=== PATIENT | female | born 1950 | race Caucasian/White ===

== ENCOUNTER 2019-08-03 16:42 | Emergency (ER) | payer MEDICARE, OTHER ==
[~2019-08-03] VITALS: Ht 162.6 cm; Wt 47.6 kg
--- OUTSIDE RECORDS SUMMARY | 2019-08-03 16:44 | XMS REPORT | Summary of Care ---
Author Author [facility] Organization [facility] Address Unknown Phone Unavailable Care Team Providers [employer] Sales Representative Name Role Phone Alena Contreras MD PCP Bao Forman MD 26 Reason for Visit * Reason Comments Skin Check Encounter Details Care Team Description Date Type Department Julienne Ortez MD [address] [facility] 6th Floor, [address] [place] [address] Skin Check 05/04/2019 Office Visit [facility] Dermatology [address] [facility] [place] [address] Allergies Comments Active Allergy Reactions Severity Noted Date I.V. Dye Hives High 12/14/2009 Affected her blood some kind of way Sulfa Antibiotics Other (See High 12/14/2009 Comments) documented as of this encounter (statuses as of 05/04/2019) Medications End Date Status Medication Sig Dispensed Refills Start Date Active PREMARIN vaginal cream daily. 0 1 Active PROVENTIL HFA 108 (90 INHALE 1-2 3 Inhaler 0 BASE) MCG/ACT inhaler PUFFS BY 4 MOUTH EVERY 6 HOURS NEEDED FOR WHEEZING. Active gabapentin (NEURONTIN) Take 1 Cap by 90 Cap 5 300 MG mouth 3 times 5 capsuleIndications: Right daily. Take lumbar radiculopathy as directed by your MD Active Mesalamine (LIALDA) 1.2 g Take 1 Tab by 120 Each 3 TBEC mouth daily. 9 Active olmesartan (BENICAR) 40 TAKE 1 TABLET 90 Tab 3 06/10/201 MG tabletIndications: EVERY DAY 9 Essential hypertension Active amlodipine (NORVASC) 10 TAKE 1 TABLET 90 Tab 3 02/15/201 MG tabletIndications: EVERY DAY 9 Essential hypertension Active labetalol (NORMODYNE) 100 TAKE 1 TABLET 180 Tab 3 02/15/201 MG tablet BY MOUTH TWO 9 TIMES DAILY Active omeprazole (PRILOSEC) 40 Take 1 Cap by 90 Cap 3 02/23/201 MG capsule mouth daily. 9 Active Mesalamine [address] 1,000 90 Each 1 03/15/ MG RECTALLY 9 NIGHTLY. 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 Walton in 03/22/2002 BCC (basal cell carcinoma), face 09/19/2014 Ocular migraine 05/11/2013 SCC (squamous cell carcinoma), arm 05/25/2012 NS (nuclear sclerosis) 11/28/2011 Macular degeneration 11/28/2011 GERD (gastroesophageal reflux disease) 09/30/2011 Need for Td vaccine 09/30/2011 SCC (squamous cell carcinoma), hand 07/30/2011 Actinic keratosis 01/21/2011 Angioma 01/21/2011 Benign neoplasm of skin of trunk, except scrotum 01/21/2011 Neoplasm of uncertain behavior of skin 01/21/2011 Lentigo 01/21/2011 Other seborrheic keratosis 01/21/2011 Leucocytosis 10/26/2010 Insomnia 10/26/2010 Febrile illness 10/15/2010 Crohn's 10/15/2010 HTN (hypertension) 01/19/2010 MVP (mitral valve prolapse) 01/18/2010 Overview: Takes Abx prior to dental procedures Asthma 01/18/2010 Other malignant neoplasm of skin of upper limb, including shoulder 12/25/2009 AK (actinic keratosis) 12/14/2009 Adenocarcinoma of right lung Overview: pT1bN0 AAA (abdominal aortic aneurysm) documented as of this encounter (statuses as of 05/04/2019) Resolved Problems Problem Noted Date Resolved Date Lung nodules 10/04/2015 06/03/2016 Last Assessment & Plan: - Patient has a 2.6 cm spiculated nodule on RB1 on CT on 09/14/2015 incidentally found - No lymphadenopathy notable on CT at [facility] - FEV1 1.53 (65%) - Surgery is being considered, so will do survey of mediastinal and hilar lymph nodes as well. - For CP-EBUS and RP-EBUS TBNA on 10/10/2015 at 8AM (Confirmation # [id number]) - Risks, benefits and alternatives explained in detail to patient - Labs at [facility] have been reviewed, deemed acceptable for procedure. Terminal insomnia 09/30/2011 06/03/2016 Wart 01/21/2011 06/03/2016 Oral aphthous ulcer 01/14/2011 06/03/2016 Preventative health care 01/14/2011 06/03/2016 Warts 02/22/2010 06/03/2016 Personal history of other malignant neoplasm of skin 12/14/2009 06/03/2016 documented as of this encounter (statuses as of 05/04/2019) Immunizations Name Administration Dates Next Due Influenza Hd 05/14/2018, 06/23/2017, 06/03/2016 Pneumococcal 13-valent 06/03/2016 Conjugate Vaccine Pneumococcal 06/30/2017 Polysaccharide Td 09/30/2011 documented as of this encounter Social History Date Tobacco Use Types Packs/Day Years Used Quit: 10/02/1979 Former Smoker Cigarettes 1 10 Smokeless Tobacco: Never Used Comments: 40 yrs ago Drinks/Week oz/Week Comments Alcohol Use No Sex Assigned at Date Recorded Not on file Industry Job Start Date Occupation Not on file Not on file Not on file Travel End Travel History Travel Start No recent travel history available. documented as of this encounter Last Filed Vital Signs Not on filedocumented in this encounter Progress Notes * Julienne Ortez MD - 05/04/2019 10:00 AM CDT Chief Complaint Patient presents with Skin Check History: 68 y.o. female presents for a skin check and is worried about skin cancer. She p oints to one or more lesions on her body that she is concerned about. H/o NMSC and lung cancer. Last seen about 2 months ago. Allergies Allergen Reactions Dye [I.V. Dye] Hives Sulfa Antibiotics Other (See Comments) Affected her blood some kind of way Current Outpatient Medications: amlodipine (NORVASC) 10 MG tablet, TAKE 1 TABLET EVERY DAY, Disp: 90 Tab, R fl: 3 eszopiclone (LUNESTA) 2 MG TABS, TAKE 1 TABLET BY MOUTH EVERY DAY AT BEDTIM E, Disp: 30 Tab, Rfl: 5 gabapentin (NEURONTIN) 300 MG capsule, Take 1 Cap by mouth 3 times daily. T bel as directed by your MD, Disp: 90 Cap, Rfl: 5 labetalol (NORMODYNE) 100 MG tablet, TAKE 1 TABLET BY MOUTH TWO TIMES DAILY , Disp: 180 Tab, Rfl: 3 Mesalamine (LIALDA) 1.2 g TBEC, Take 1 Tab by mouth daily., Disp: 120 Each, Rfl: 3 Mesalamine 1000 MG SUPP, PLACE 1,000 MG RECTALLY NIGHTLY., Disp: 90 Each, R fl: 1 olmesartan (BENICAR) 40 MG tablet, TAKE 1 TABLET EVERY DAY, Disp: 90 Tab, R fl: 3 omeprazole (PRILOSEC) 40 MG capsule, Take 1 Cap by mouth daily., Disp: 90 C ap, Rfl: 3 PREMARIN vaginal cream, daily., Disp: , Rfl: PROVENTIL HFA 108 (90 BASE) MCG/ACT inhaler, INHALE 1-2 PUFFS BY MOUTH EVER Y 6 HOURS NEEDED FOR WHEEZING., Disp: 3 Inhaler, Rfl: 0 Physical exam: The patient is in no apparent distress. Anicteric and not anxious. The followi ng areas were examined: face including forehead, nose, lips, and cheeks, scalp, ears, neck, chest, upper arms, lower arms, hands, fingers, fingernails, abdomen, back, buttock, thighs, lower legs, feet, toes and toenails. Multiple brown mac ules, brown papules, red papules and stuck-on plaques were identified. 5 small 3mm scaly macules on arms and hands Review of Systems: Patient feels well, does not report fever or chills. Assessment and Plan: 1) Skin check: Lentigines, Nevi, Seborrheic Keratoses and Angiomas. Patient re assured that these lesions were benign and counseled regarding the prevention an d detection of suspicious lesions. Sun protection was stressed. 2) Actinic keratoses on arms andhands ln2 to ak x 5 3) h/o NMSC. NER. Recommended nicotinamide 500 mg PO BID. F/u 2 months. documented in this encounter Plan of Treatment Care Team Description Date Type Specialty Julienne Ortez MD [address] [place] [address] 6th Floor, [address] [place] [address] 07/06/2019 Office Visit Dermatology Order Schedule Name Type Priority Associated Diagnoses Ordered: 05/04/2019 [place] DESTRUC PREMALIGNANT, [place] Charge Routine AK (actinic keratosis) FIRST LESION([id number]) Ordered: 05/04/2019 [place] DESTRUC [place] Charge Routine AK (actinic keratosis) PREMALIGNANT,15+ LESIONS([id number]) Health Maintenance Due Date Last Done Comments BMI FOLLOW UP PLAN 1966 HEPATITIS C SCREENING 1966 FALL SCREEN 2013 FLU VACCINE > 6 MONTHS 04/08/2019 05/14/2018, 05/14/2018, 06/23/2017, Additional history exists MEDICARE AWV 02/16/2020 02/15/2019, 12/29/2017 MAMMOGRAM ANNUAL 03/02/2020 03/02/2019, 12/26/2017, 06/03/2016 TETANUS SHOT (ADULT) 09/30/2021 09/30/2011 COLON CANCER SCREENIN03/16/2024 03/16/2019, 07/06/2013 COLONOSCOPY PREVNAR >=65 (PCV13) Completed 06/03/2016 PNEUMOVAX >=65 (PPSV23) Completed 06/30/2017, 06/30/2017 OSTEOPOROSIS SCREENING Completed 12/03/2017 documented as of this encounter Results Not on filedocumented in this encounter Visit Diagnoses Diagnosis History of skin cancer - Primary Personal history of other malignant neoplasm of skin AK (actinic keratosis) Actinic keratosis Keratosis seborrheica Other seborrheic keratosis documented in this encounter Insurance Type Payer Benefit Subscriber ID Effective Phone Address Plan / Dates Group Medicare MEDICARE MEDICARE xxxxxxxxxxx 2014- [address] Present [id number] [place] [address] [facility]DE[facility] 2013-P [address] [employer] resent 260677 [place] [phone] documented as of this encounter
--- OUTSIDE RECORDS SUMMARY | 2019-08-03 16:44 | XMS REPORT ---
Author Author [facility] Address Unknown Phone Unavailable Care Team Providers [employer] Supervisor Name Role Phone JUAN MCELROY Unavailable Unavailable ANGIE GOMEZ Unavailable Unavailable Payers Payer Name Policy Type Policy Number Effective Date Expiration Date Problems This patient has no known problems. Allergies, Adverse Reactions, Alerts This patient has no known allergies or adverse reactions. Medications This patient has no known medications. Results Test Description Test Time Test Comments Text Results Atomic Results Result Comments TISSUE EXAM 2019-03-17 11:14:00 Surgical Pathology Report Case: [id number] Authorizing Provider: Lg Mcelroy MD Collected: 03/16/2019 1502 Ord ering Location: [facility] ENDOSCOPY Received: 03/16/2019 1656 SERVICES Pathologist: Aysha Cooper MD Specimens: A) - Duodenum, Bx B) - Stomach, Antrum, Bx C) - Stomach, Body, Bx D) - Biopsy, Terminal Ileum, Bx E) - Large Intestine, Colon - Right/Ascending, Bx F) - Large Intestine, Colon - Left/Descending, Bx A. DUODENUM, BIOPSY: - DUODENAL MUCOSA WITH PRESERVED VILLOUS ARCHITECTURE - NO SIGNIFICANT HISTOPATHOLOGICAL CHANGE B. 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 PYLORI-LIKE ORGANISMS C. GASTRIC BODY, BIOPSY: - GASTRIC BODY TYPE MUCOSA WITH MILD CHRONIC INACTIVE GASTRITIS - WARTHIN STARRY STAIN NEGATIVE FOR H. PYLORI-LIKE ORGANISMS D. TERMINAL ILEUM, BIOPSY: - ILEAL MUCOSA WITH MATURE PAYERS PATCHES AND PRESERVED VILLOUS ARCHITECTURE E. RIGHT ASCENDING COLON, BIOPSY: - COLONIC MUCOSA WITH NO SIGNIFICANT HISTOPATHOLOGICAL CHANGE F. LEFT DESCENDING COLON, BIOPSY: - COLONIC MUCOSA WITH PATCHY CHRONIC MODERATELY ACTIVE COLITIS, SEE COMMENT Signing Pathologist Direct Phone Line: [phone] signed by Aysha Cooper MD on 03/17/2019 at 11:14 AMF. There is a single fragment of colonic mucosa showing chronic moderately active colitis noted identified by Lymphoplasmacytic infiltrate with mild crypt distortion suggestive of patchy chronic active disease.The above changes are not entirely specific and can be seen in association with infection, drugs, ischemic injuries, diverticulum- associated colitis, early phase of idiopathic inflammatory bowel diseases, or unknown etiologies. Clinical correlation and follow-up are recommendedParts A to F negative for dysplasia or viral cytopathic effect.Endoscopic report reviewed./[id number] diagnosis: Crohn's disease of the colon with complicationsA. Duodenum; B. Stomach antrum; C. Stomach body; D. Terminal ileum; E. Right ascending colon; F. Left descending colonThe specimen is received in six separate containers of formalin each with patient's name and accession number.Container #1 is labeled "duodenum" and consists of two portions of price- pink tissue measuring 2 mm in greatest dimension each, submitted entirely as A1. Container #2 is labeled "stomach antrum" and consists of two pieces of price-white tissue measuring 2 mm in greatest dimension each, submitted entirely as B1.Container #3 is labeled "stomach body" and consists of a single piece of off white tissue measuring 3 mm in greatest dimension, submitted entirely as C1. Container #4 is labeled "terminal ileum" and consists of two portions of off white tissue measuring 1 and 2 mm in greatest dimension each, submitted entirely as D1. Container #5 is labeled "right ascending colon" and consists of five pieces of off white tissue measuring 2 to 3 mm in greatest dimension each, submitted entirely as E1.Container #6 is labeled "left descending colon" and consists of four pieces of price-white tissue measuring 2 mm in greatest dimension each, submitted entirely as F1. TW/plPerformed The interpretation of this case included the use of immunohistochemistry or special stains.Control Slides Examined: In-house known positive controls were evaluated along with the test tissue. These control slides run alongside of the patients sample show appropriate staining. Internal positive and negative controls when available are evaluated Immunohistochemistry technical testing was performed at [facility], Pathology Laboratory where it was developed and its performance characteristics were determined. It has not been cleared or approved by the U.S. Food and Drug Administration. The FDA has determined that such clearance or approval is not necessary. The test is used for clinical purposes. It should not be regarded as investigational or for research. This laboratory is certified under the Clinical Laboratory Improvement Amendments of 1988 (CLIA-88) as qualified to perform high complexity clinical laboratory testing. CT, CTA, CHEST 2018-12-28 10:51:00 FINAL REPORT EXAM: CTA OF THE THORACOABDOMINAL AORTA INDICATION: I71.2 COMPARISON: CT abdomen pelvis 09/26/[address] chest 09/14/2015. CT chest 12/08/2018, 01/02/2017, at 07/04/2016, PET/CT 02/01/2016 ([facility] PACS) TECHNIQUE: Multi- detector CT technology was employed. CTA Gated axial imaging of the chest, abdomen was performed after the administration of IV contrast. In addition, delay images of the abdomen and pelvis were also obtained for evaluation of endoleaks. IV CONTRAST: 100 mL of Isovue-370 ORAL CONTRAST: None COMPLICATIONS: None RADIATION DOSE: Total DLP: 3186 mGy*cm Estimated effective dose: (DLP x 0.015 x size factor) mcv CTDIvol has been reviewed. It is below the limits set by the Radiation Protoco l Committee (RPC). For optimization of anatomic evaluation, multiplanar reconstruction, maximum intensity projections, and advanced 3-D off-line postprocessing were performed on a dedicated stand-alone workstation under the direct supervision of the interpreting physician. FINDINGS:Potential study limitations: None. LINES/ TUBES: None. VASCULAR WITH ADVANCED 3-D OFF-LINE POSTPROCESSING:Aortic valve morphology is trileaflet and contains no calcifications. 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 The focal outpouching, measures 1.7 x 1.3 cm and contains a small amount of intraluminal thrombus. This has been a stable since at least 2015.The remaining thoracic aorta is normal in course, caliber, and contour. There is no acute aortic pathology, such as dissection, intramural hematoma, or contained rupture. Aortic plaques: Moderate nonobstructing atherosclerotic calcifications throughout the thoracic aorta. The arch vessel branching pattern is conventional. All of the arch branch vessels appear widely patent in their p roximal portions. Mild ectasia of the proximal arch branch vessels measuring up to 1.1 cm. The suprarenal and renal abdominal aorta is normal in course, caliber, and contour. Patent infrarenal bilateral iliac endovascular stent graft, which begins just beyond the origin of the renal arteries and extends down to both meets common iliac arteries. There is moderate intraluminal narrowing at the most distal aspect of the distal infrarenal abdominal aorta measuring 0.6 cm in luminal diameter, 2 cm above the bifurcation. No interval stent graft migration or endoleak. There is no acute aortic pathology . Aortic plaques: Mild to moderate scattered atherosclerotic calcifications. Ball Warper Tender dimensions of the thoracic aorta are as follows: 2.8 cm at the aortic annulus3.4 x 3.5 cm at the sinuses of Valsalva (the sinotubular junction is preserved)3.6 cm at the mid ascending aorta2.9 cm at the distal ascending aorta2.5 cm at the mid transverse arch2.4 cm at the proximal descending thoracic aorta2.3 cm at the diaphragmatic hiatus. The abdominal aorta measures: 2.2 cm at the supra mesenteric segment2.1 cm at the mesenteric segment1.8 cm at the renal segment1.6 cm at the mid infrarenal segment1.6 cm at the aortic bifurcation. The celiac axis and SMA are patent. BLANKA is not well-visualized. There are two right and single left renal arteries which appear patent with associated moderate calcified plaques in the proximal segment. The visualized common iliac arteries are normal in caliber and contour with patent stent graft. There are mild atherosclerotic changes of the pelvic arteries. 0.9 cm at the right common iliac artery 0.8 cm at the left common iliac artery Nonvascular findings:LUNGS AND AIRWAYS: Right upper lobectomy with mild scarring at the surgical site. Soft tissue density in the right apex measuring 26 Hounsfield units and 2 cm in thickness on series 1, image 16 appears decreased when compare to CT chest from 01/02/2017 and may reflect postoperative scarring. Bilateral centrilobular e mphysema. No suspicious pulmonary nodules or masses. Mild scarring in both lower lobes. Airways are patent. PLEURA: The pleural spaces are clear. HEART AND MEDIASTINUM: The thyroid gland is normal. Few noncalcified mildly prominent prevascular and left para-aortic lymph nodes measuring up to 0.7 cm in transverse diameter, which appears slightly increase in size when compared to 09/14/2015 but is stable since 2017. No paratracheal or hilar lymphadenopathy. There are also a few calcified bilateral hilar lymph nodes. Diffuse coronary artery calcifications. Biatrial enlargement. Small pericardial effusion. Diffuse coronary artery calcifications. The main pulmonary artery is normal in caliber, measuring 2.1 cm in diameter. However, there is mild enlargement of the right and left pulmonary arteries, measuring 2.6 and 2.4 cm, respectively and suggestive of some degree of pulmonary hypertension. The cardiac chambers demonstrate normal atrioventricular and ventriculoarterial concordance, and systemic and pulmonary venous return. The cardiac chambers are normal in size. The coronary arteries have normal origins and courses. There are no distinct coronary calcifications identified, though this study was not optimized for coronary artery evaluation. There is no pericardial effusion. ABDOMEN:6 mm hypodense lesions in the left lower liver have not significantly changed since 2016 and suggestive of hepatic cysts.The gallbladder, spleen, and pancreas appear normal. The adrenal glands appear normal. Both kidneys are normal in size, shape, and density. No hydronephrosis. 3.3 cm exophytic simple cyst in the right kidney. A 2 mm calcification in the left kidney is unchanged from prior suggestive of nonobstructing calcified stone.There is no significant retroperitoneal adenopathy. No free fluid or free air within the abdomen. The visualized bowel appears unremarkable. BONES:Diffuse bone demineralization. Mild multilevel degenerative changes of the thoracolumbar spine. Nonaggressive sclerotic lesion at T9 vertebral body. IMPRESSION: 1. 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 Total diameter of the aorta at this level is 3.6 cm. Findings are unchanged since 2016. Normal remaining thoracic aorta size. No acute thoracic aorta pathology. 2. Infrarenal abdominal aorta-bilateral common iliac artery stent graft, which is patent with associated moderate narrowing at the distal segment resulting in minimal luminal diameter of 0.6 cm. No interval migration or endoleak. 3. Right upper lobectomy with decreased right apical soft tissue thickening. No new suspicious lung nodules or masses. Signed: Greg Ron MDReport Verified Date/Time: 12/28/2018 10:51:16 , CTA, ABDOMEN, ANGIO PROTOCOL 2018-12-28 10:51:00 FINAL REPORT EXAM: CTA OF THE THORACOABDOMINAL AORTA INDICATION: I71.2 COMPARISON: CT abdomen pelvis 09/26/[address] chest 09/14/2015. CT chest 12/08/2018, 01/02/2017, at 07/04/2016, PET/CT 02/01/2016 ([facility] PACS) TECHNIQUE: Multi-detector CT technology was employed. CTA Gated axial imaging of the chest, abdomen was performed after the administration of IV contrast. In addition, delay images of the abdomen and pelvis were also obtained for evaluation of endoleaks. IV CONTRAST: 100 mL of Isovue-370 ORAL CONTRAST: None COMPLICATIONS: None RADIATION DOSE: Total DLP: 3186 mGy*cm Estimated effective dose: (DLP x 0.015 x size factor) mcv CTDIvol has been reviewed. It is below the limits set by the Radiation Protoco l Committee (RPC). For optimization of anatomic evaluation, multiplanar reconstruction, maximum intensity projections, and advanced 3-D off-line postprocessing were performed on a dedicated stand-alone workstation under the direct supervision of the interpreting physician. FINDINGS:Potential study limitations: None. LINES/ TUBES: None. VASCULAR WITH ADVANCED 3-D OFF-LINE POSTPROCESSING:Aortic valve morphology is trileaflet and contains no calcifications. 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 The focal outpouching, measures 1.7 x 1.3 cm and contains a small amount of intraluminal thrombus. This has been a stable since at least 2015.The remaining thoracic aorta is normal in course, caliber, and contour. There is no acute aortic pathology, such as dissection, intramural hematoma, or contained rupture. Aortic plaques: Moderate nonobstructing atherosclerotic calcifications throughout the thoracic aorta. The arch vessel branching pattern is conventional. All of the arch branch vessels appear widely patent in their p roximal portions. Mild ectasia of the proximal arch branch vessels measuring up to 1.1 cm. The suprarenal and renal abdominal aorta is normal in course, caliber, and contour. Patent infrarenal bilateral iliac endovascular stent graft, which begins just beyond the origin of the renal arteries and extends down to both meets common iliac arteries. There is moderate intraluminal narrowing at the most distal aspect of the distal infrarenal abdominal aorta measuring 0.6 cm in luminal diameter, 2 cm above the bifurcation. No interval stent graft migration or endoleak. There is no acute aortic pathology . Aortic plaques: Mild to moderate scattered atherosclerotic calcifications. Ball Warper Tender dimensions of the thoracic aorta are as follows: 2.8 cm at the aortic annulus3.4 x 3.5 cm at the sinuses of Valsalva (the sinotubular junction is preserved)3.6 cm at the mid ascending aorta2.9 cm at the distal ascending aorta2.5 cm at the mid transverse arch2.4 cm at the proximal descending thoracic aorta2.3 cm at the diaphragmatic hiatus. The abdominal aorta measures: 2.2 cm at the supra mesenteric segment2.1 cm at the mesenteric segment1.8 cm at the renal segment1.6 cm at the mid infrarenal segment1.6 cm at the aortic bifurcation. The celiac axis and SMA are patent. BLANKA is not well-visualized. There are two right and single left renal arteries which appear patent with associated moderate calcified plaques in the proximal segment. The visualized common iliac arteries are normal in caliber and contour with patent stent graft. There are mild atherosclerotic changes of the pelvic arteries. 0.9 cm at the right common iliac artery 0.8 cm at the left common iliac artery Nonvascular findings:LUNGS AND AIRWAYS: Right upper lobectomy with mild scarring at the surgical site. Soft tissue density in the right apex measuring 26 Hounsfield units and 2 cm in thickness on series 1, image 16 appears decreased when compare to CT chest from 01/02/2017 and may reflect postoperative scarring. Bilateral centrilobular e mphysema. No suspicious pulmonary nodules or masses. Mild scarring in both lower lobes. Airways are patent. PLEURA: The pleural spaces are clear. HEART AND MEDIASTINUM: The thyroid gland is normal. Few noncalcified mildly prominent prevascular and left para-aortic lymph nodes measuring up to 0.7 cm in transverse diameter, which appears slightly increase in size when compared to 09/14/2015 but is stable since 2017. No paratracheal or hilar lymphadenopathy. There are also a few calcified bilateral hilar lymph nodes. Diffuse coronary artery calcifications. Biatrial enlargement. Small pericardial effusion. Diffuse coronary artery calcifications. The main pulmonary artery is normal in caliber, measuring 2.1 cm in diameter. However, there is mild enlargement of the right and left pulmonary arteries, measuring 2.6 and 2.4 cm, respectively and suggestive of some degree of pulmonary hypertension. The cardiac chambers demonstrate normal atrioventricular and ventriculoarterial concordance, and systemic and pulmonary venous return. The cardiac chambers are normal in size. The coronary arteries have normal origins and courses. There are no distinct coronary calcifications identified, though this study was not optimized for coronary artery evaluation. There is no pericardial effusion. ABDOMEN:6 mm hypodense lesions in the left lower liver have not significantly changed since 2016 and suggestive of hepatic cysts.The gallbladder, spleen, and pancreas appear normal. The adrenal glands appear normal. Both kidneys are normal in size, shape, and density. No hydronephrosis. 3.3 cm exophytic simple cyst in the right kidney. A 2 mm calcification in the left kidney is unchanged from prior suggestive of nonobstructing calcified stone.There is no significant retroperitoneal adenopathy. No free fluid or free air within the abdomen. The visualized bowel appears unremarkable. BONES:Diffuse bone demineralization. Mild multilevel degenerative changes of the thoracolumbar spine. Nonaggressive sclerotic lesion at T9 vertebral body. IMPRESSION: 1. 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 Total diameter of the aorta at this level is 3.6 cm. Findings are unchanged since 2016. Normal remaining thoracic aorta size. No acute thoracic aorta pathology. 2. Infrarenal abdominal aorta-bilateral common iliac artery stent graft, which is patent with associated moderate narrowing at the distal segment resulting in minimal luminal diameter of 0.6 cm. No interval migration or endoleak. 3. Right upper lobectomy with decreased right apical soft tissue thickening. No new suspicious lung nodules or masses. Signed: Greg Ron MDReport Verified Date/Time: 12/28/2018 10:51:16 -CREATININE 2018-12-25 14:24:00 POC-CREATININE (TREMAINE) (test ssut=4508) 0.7 mg/dL 0.6-1.3 TESTED AT [facility] [address] [facility] [address] POC-EGFR (TREMAINE) (test pyns=9362) 83 mL/min/1.73M2 RAD, FOOT, MIN 3 VIEWS, [id number] 15:07:00Reason for exam:->FOOT INJURYShould this be performed at the bedside?->NoFINAL REPORT Right foot. Clinical history: Foot injury. COMPARISON STUDY: None available. FINDINGS: Three views of the right foot demonstrate no evidence of fracture, malalignment or effusion. Degenerative changes are seen. Signed: Hans Ruiz MDReport Verified Date/Time: 10/15/2018 15:07:52 Reading Location: [facility] C0[facility] Consult Reading Room
[2019-08-03] MEDS ORDERED: DEXAMETHASONE SOD PHOS 10 MG/1 ML VIAL IM ONE (17:30)
[2019-08-03] MEDS ORDERED: HYDROCODONE/APAP 5MG-325MG TAB PO ONE (17:30)
--- NOTE | 2019-08-03 18:56 | Diagnostic Imaging Report ---
RIGHT FOOT X-RAY - 3 VIEWS HISTORY: Twisted right foot ^[id number] ^[id number] COMPARISON: None available. FINDINGS: Bones: No acute displaced fracture. Osseous alignment is within normal limits. Joints: The joint spaces are well-maintained. Soft tissues: The soft tissues appear unremarkable. IMPRESSION: No acute radiographic abnormality. Signed by: Dr. Romelia Zarate M.D. on 08/03/2019 6:53 PM
== END 2019-08-03 19:10 | disposition home or self-care (01) ==
LOC: FSED 16:42
DX: S93.601A Unspecified sprain of right foot, initial encounter (principal); X50.1XXA Overexertion from prolonged static or awkward postures, initial encounter; Y92.008 Other place in unspecified non-institutional (private) residence as the place of occurrence of the external cause; K50.90 Crohn's disease, unspecified, without complications
CPT/HCPCS: 73630; 99283; J1100